=== PATIENT | male | born 1950 | race Caucasian/White ===

== ENCOUNTER 2021-12-31 14:14 | Observation (INO) ==
[2021-12-31 14:19] VITALS: BMI 32.3
--- NOTE | 2021-12-31 14:23 | DR.GENAD ---
HPI Time Seen Time Seen by Provider: 12/31/21 14:55 Complaint/Symptoms Chief Complaint Doctors Comments: 71 y/o male brought in via EMS for R hernia issues. Has had a R inguinal hernia over the past year. Has increased in size over the past week. Pain is sharp, located R inguinal region, radiates to R testicle. Worse with movement, standing, palpation. Nothing makes it better. Denies nausea, vomiting ,fever. Has difficulty with urination, defecation at times. COVID-19 Coronavirus risk:travel/contact w/high risk person: No Has patient experienced Coronavirus symptoms: No Nurses notes reviewed Nurses Notes Review: Yes Source History Provided: Patient Mode of Arrival Mode of Arrival: Stretcher PMH PMH Past Medical History: Arthritis, Coronary Artery Disease, Diabetes, Dyslipidemia, Hypertension and [place] Past Surgical History: Yes Surgical History: Abdominal Surgery, Angioplasty/Stents, Appendectomy, CABG/Valve Surgery and Cholecystectomy Family History Family Medical History: Cancer, [place], Coronary Artery Disease, Heart Failure and Hypertension Social History Do you use any recreational Drugs:: No Travel Risk Coronavirus risk:travel/contact w/high risk person: No Has patient experienced Coronavirus symptoms: No ROS Review of Systems Constitutional: No Symptoms Reported Eyes: No Symptoms Reported ENTM: No Symptoms Reported Respiratoy: No Symptoms Reported Cardiovascular: No Symptoms Reported Gastrointestinal/Abdominal: Abdominal Pain Genitourinary: No Symptoms Reported Neurological: No Symptoms Reported Musculoskeletal: No Symptoms Reported Integumentary: No Symptoms Reported Hematologic/Lymphatic: No Symptoms Reported Psychiatric: No Symptoms Reported All Other Systems: Reviewed and Negative PE Vital Signs Vitals: Temperature 97.1 F Pulse Rate 102 Respiratory Rate 18 Blood Pressure [Right Arm] 128/62 Blood Pressure 121/82 O2 Sat by Pulse Oximetry 98 General Limitations: No Limitations General Appearance: Alert and In No Apparent Distress Head Head Exam: Normal Inspection Eyes Eye exam: PERRL and EOMI ENT ENT Exam: Normal Exam and Mucous Membranes Moist Neck Neck Exam: Normal Inspection and Full ROM Chest Chest Inspection: Normal Inspection Respiratory Respiratory Exam: Normal Lung Sounds Bilat; negative Accessory Muscle Use and Respiratory Distress Respiratory Exam: Bilateral: Clear to Auscultation Cardiovascular Cardiovascular Exam: Regular Rate, Normal Rhythm and Normal Heart Sounds Abdominal Exam Abdominal Exam: Normal Bowel Sounds, Soft and Tenderness (R inguinal region, + large, soft, tender R inguinal hernia. Not full reducible, does not feel incarcerated. ) Extremities Extremities Exam: Normal Inspection Back Back Exam: Normal Inspection Neurologic Neurological Exam: Alert, Oriented X3 and CN II-XII Intact; negative Motor Sensory Deficit Psychiatric Psychiatric Exam: Normal Affect Skin Skin Exam: Warm and Dry MDM Differential Diagnosis Differential Diagnosis: R inguinal hernia - irreducible, incarcerated, strangulated. COURSE Treatment Treatment: 71 y/o male with R inguinal hernia over the past year, worsening size/pain over the past week. + irreducible, does not appear incarcerated/strangulated. W/u performed. CT of the abd/pelvis with moderate R inguinal hernia with bowel in hernia, not obstructed. Discussed with Dr Kinney, surgery, will admit and anticipate hernia repair in the AM. ROR Labs Reviewed Laboratory Results Reviewed?: Yes Result Diagrams: 12/31/21 14:26 12/31/21 14: Laboratory: WBC 7.1 X10^3/uL (3.6-10.0) 12/31/21 14: RBC 4.25 X10^6/uL (4.7-6.0) L 12/31/21 14:26 Hgb 13.2 g/dL (13.5-18.0) L 12/31/21 14: Hct 36.9 % (42.0-54.0) L 12/31/21 14: MCV 86.9 fL (80.0-100.0) 12/31/21 14:26 MCH 31.1 pg (27.0-34.0) 12/31/21 14: MCHC 35.8 g/dL (33.0-35.0) H 12/31/21 14: RDW 13.7 % (11.6-16.5) 12/31/21 14: Plt Count 161 X10^3/uL (150.0-450.0) 12/31/21 14: MPV 8.9 fL (7.4-11.0) 12/31/21 14:26 Neut % (Auto) 71.2 % (42.0-75.0) 12/31/21 14:26 Lymph % (Auto) 18.0 % (21.0-51.0) L 12/31/21 14:26 Bibb % (Auto) 5.9 % (0.0-13.0) 12/31/21 14: Eos % (Auto) 1.5 % (0.9-2.9) 12/31/21 14: Baso % (Auto) 3.4 % (0.2-1.0) H 12/31/21 14: Neut # (Auto) 5.1 x10^3/uL (2.2-4.8) H 12/31/21 14:26 Lymph # (Auto) 1.3 X10^3/uL (1.3-2.9) 12/31/21 14: Bibb # (Auto) 0.4 x10^3/uL (0.3-0.8) 12/31/21 14: Eos # (Auto) 0.1 x10^3/uL (0.0-0.2) 12/31/21 14: Baso # (Auto) 0.2 X10^3/uL (0.0-0.1) H 12/31/21 14: Absolute Nucleated RBC 0.1 /100WBC 12/31/21 14: PT 15.2 SECONDS (11.8-14.3) 12/31/21 14: INR Target Range - 12/31/21 14: INR 1.24 (0.8-1.3) 12/31/21 14: APTT 25.7 SECONDS (22.9-36.5) 12/31/21 14:26 PTT Comment - 12/31/21 14:26 Sodium 138 mmol/L (136-145) 12/31/21 14: Corrected Sodium 140 mmol/L (136-145) 12/31/21 14:26 Potassium 5.4 mmol/L (3.5-5.1) H 12/31/21 14:26 Chloride 101 mmol/L (98-107) 12/31/21 14:26 Carbon Dioxide 27.9 mmol/L (21-32) 12/31/21 14:26 BUN 48 mg/dL (7-18) H 12/31/21 14:26 Creatinine 1.77 mg/dL (0.70-1.30) H 12/31/21 14:26 Est GFR (MDRD) Af Amer 49 (>60) L 12/31/21 14:26 Est GFR (MDRD) Non-Af 41 (>60) L 12/31/21 14:26 Glucose 168 mg/dL (65-99) H 12/31/21 14:26 Calcium 9.5 mg/dL (8.5-10.1) 12/31/21 14:26 Corrected Calcium TNP 12/31/21 14:26 Total Bilirubin 0.40 mg/dL (0.2-1.0) 12/31/21 14:26 AST 16 Units/L (15-37) 12/31/21 14:26 ALT 11 Units/L (12-78) L 12/31/21 14:26 Alkaline Phosphatase 81 Units/L (46-116) 12/31/21 14:26 Total Protein 7.5 g/dL (6.4-8.2) 12/31/21 14:26 Albumin 4.2 g/dL (3.4-5.0) 12/31/21 14:26 Globulin 3.3 g/dL (2.5-4.5) 12/31/21 14:26 Albumin/Globulin Ratio 1.3 Ratio (1.1-2.1) 12/31/21 14:26 XRAY XRAY Interpreted by: Radiologist X-ray Results: + R inguinal hernia, no obstruction. EKG Rate: 92 [place]: Normal Rhythm: NSR Block: None ST: Nonsp Opioid Opioid Risk Tool Age (Gwyn box if 16-45): No History of Preadolescent Sexual Abuse: No Total: 0 Total Score Risk Category: Low Risk Copyright: Tommie PATIÑO predicting aberrant behaviors Diagnosis Discharge Problem: Irreducible right inguinal hernia
[2021-12-31 14:34] LABS: BASOPHILS # (AUTO) 0.2 X10^3/uL (0.0-0.1); BASOPHILS % (AUTO) 3.4 % (0.2-1.0); EOSINOPHILS # (AUTO) 0.1 x10^3/uL (0.0-0.2); EOSINOPHILS % (AUTO) 1.5 % (0.9-2.9); HEMATOCRIT 36.9 % (42.0-54.0); HEMOGLOBIN 13.2 g/dL (13.5-18.0); LYMPHOCYTES # (AUTO) 1.3 X10^3/uL (1.3-2.9); MEAN CORPUSCULAR HEMOGLOBIN 31.1 pg (27.0-34.0); MEAN CORPUSCULAR HGB CONC 35.8 g/dL (33.0-35.0); MEAN CORPUSCULAR VOLUME 86.9 fL (80.0-100.0); MEAN PLATELET VOLUME 8.9 fL (7.4-11.0); MONOCYTES # (AUTO) 0.4 x10^3/uL (0.3-0.8); MONOCYTES % (AUTO) 5.9 % (0.0-13.0); NEUTROPHILS # (AUTO) 5.1 x10^3/uL (2.2-4.8); NEUTROPHILS % (AUTO) 71.2 % (42.0-75.0); RED BLOOD COUNT 4.25 X10^6/uL (4.7-6.0); RED CELL DISTRIBUTION WIDTH 13.7 % (11.6-16.5); WHITE BLOOD COUNT 7.1 X10^3/uL (3.6-10.0)
[2021-12-31 14:47] LABS: ALANINE AMINOTRANSFERASE 11 Units/L (12-78); ALBUMIN 4.2 g/dL (3.4-5.0); ALKALINE PHOSPHATASE 81 Units/L (46-116); ASPARTATE AMINO TRANSFERASE 16 Units/L (15-37); BLOOD UREA NITROGEN 48 mg/dL (7-18); CALCIUM 9.5 mg/dL (8.5-10.1); CARBON DIOXIDE 27.9 mmol/L (21-32); CHLORIDE 101 mmol/L (98-107); COR NA(FOR HYPERGLY) 140 mmol/L (136-145); CREATININE 1.77 mg/dL (0.70-1.30); SODIUM 138 mmol/L (136-145); TOTAL PROTEIN 7.5 g/dL (6.4-8.2); eGFR NON BLACK RACES 41 (>60)
[2021-12-31] MEDS ORDERED: MORPHINE SULFATE INJ 4 MG IVP ONE (14:55)
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
[2021-12-31] MEDS ORDERED: MORPHINE SULFATE INJ 4 MG ONE (15:02)
[2021-12-31] MEDS ORDERED: ZOFRAN INJ 4 MG VIAL IVP ONE (15:56)
[2021-12-31] MEDS ORDERED: ZOFRAN INJ 4 MG VIAL ONE (16:08)
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
[2021-12-31] MEDS: MORPHINE SULFATE INJ 4 MG IVP PRN (20:23)
[2022-01-01] MEDS ORDERED: ZOFRAN INJ 4 MG VIAL IVP ONE (05:05)
[2022-01-01 06:13] LABS: BASOPHILS % (AUTO) 0.9 % (0.2-1.0); EOSINOPHILS # (AUTO) 0.2 x10^3/uL (0.0-0.2); EOSINOPHILS % (AUTO) 4.5 % (0.9-2.9); HEMOGLOBIN 12.4 g/dL (13.5-18.0); LYMPHOCYTES # (AUTO) 1.8 X10^3/uL (1.3-2.9); MEAN CORPUSCULAR HEMOGLOBIN 30.7 pg (27.0-34.0); MEAN CORPUSCULAR HGB CONC 35.3 g/dL (33.0-35.0); MONOCYTES # (AUTO) 0.4 x10^3/uL (0.3-0.8); MONOCYTES % (AUTO) 8.1 % (0.0-13.0); NEUTROPHILS % (AUTO) 53.5 % (42.0-75.0); RED BLOOD COUNT 4.03 X10^6/uL (4.7-6.0); RED CELL DISTRIBUTION WIDTH 13.6 % (11.6-16.5); WHITE BLOOD COUNT 5.5 X10^3/uL (3.6-10.0)
[2022-01-01 06:29] LABS: ALANINE AMINOTRANSFERASE 11 Units/L (12-78); ALBUMIN 3.8 g/dL (3.4-5.0); ALKALINE PHOSPHATASE 81 Units/L (46-116); ASPARTATE AMINO TRANSFERASE 16 Units/L (15-37); BLOOD UREA NITROGEN 39 mg/dL (7-18); CALCIUM 8.8 mg/dL (8.5-10.1); CARBON DIOXIDE 26.3 mmol/L (21-32); CHLORIDE 105 mmol/L (98-107); COR NA(FOR HYPERGLY) 140 mmol/L (136-145); CREATININE 1.29 mg/dL (0.70-1.30); SODIUM 140 mmol/L (136-145); TOTAL PROTEIN 6.9 g/dL (6.4-8.2); eGFR NON BLACK RACES 59 (>60)
[2022-01-01] MEDS ORDERED: MARCAINE SPINAL ONE (10:29)
[2022-01-01] MEDS ORDERED: XYLOCAINE 2 % (PLAIN) ONE ×2 (10:39→11:29)
[2022-01-01] MEDS ORDERED: DIPRIVAN VIAL 20 ML ONE ×3 (10:39→13:27)
[2022-01-01] MEDS ORDERED: PRECEDEX INJ VIAL IVP ONE (10:39)
[2022-01-01] MEDS ORDERED: DUONEB 0.5 MG/3 MG (3 mL) NEB ONE ×2 (10:53→10:59)
[2022-01-01] MEDS ORDERED: NS 1,000 ML IV 1,000 ML ONE (10:53)
[2022-01-01] MEDS ORDERED: ANCEF VIAL 1 GRAM ONE (10:53)
[2022-01-01] MEDS ORDERED: NS 100 ML IV 100 ML ONE (10:54)
[2022-01-01] MEDS ORDERED: REFLEX: PROVENTIL NEB & PulmiCORT NEB~ NEB SCH (11:00)
[2022-01-01] MEDS ORDERED: NEO-SYNEPHRINE INJ ONE (11:00)
[2022-01-01] MEDS ORDERED: POLYMYXIN B SULFATE ONE (11:01)
[2022-01-01] MEDS ORDERED: MARCAINE 0.25% INJ ONE (11:01)
[2022-01-01] MEDS ORDERED: NAROPIN 0.75% EPI ONE (11:39)
[2022-01-01] MEDS ORDERED: FENTANYL VIAL INJ 100 mcg ONE (12:10)
[2022-01-01] MEDS ORDERED: KETAMINE 50 MG/5 ML-NACL SYRNG ONE (12:11)
[2022-01-01] MEDS ORDERED: PULMICORT NEB TX 0.5 MG NEB SCH (13:00)
[2022-01-01] MEDS ORDERED: DILAUDID INJ IVP PRN (14:09)
[2022-01-01] MEDS ORDERED: D5 1/2 NS 1,000 ML 1,000 ML IV SCH (15:00)
[2022-01-01 15:25] LABS: CREATINE KINASE MB 1.7 ng/mL (0-4.0)
[2022-01-01] MEDS ORDERED: NITRO-BID OINT 2% Multi-Dose tube TD ONE (15:39)
[2022-01-01] MEDS ORDERED: PROTONIX INJ 40 MG VIAL IVP SCH (15:41)
[2022-01-01] MEDS ORDERED: MAALOX or MYLANTA PO ONE (15:43)
[2022-01-01] MEDS ORDERED: NITRO-BID OINT 2% UD (E.R. USE ONLY) ONE (15:45)
[2022-01-01] MEDS ORDERED: ASPIRIN 81 MG CHEWTAB ONE (15:45)
[2022-01-01] MEDS ORDERED: PROTONIX INJ 40 MG VIAL ONE (15:45)
[2022-01-01] MEDS ORDERED: MAALOX or MYLANTA ONE (15:47)
[2022-01-01] MEDS ORDERED: ASPIRIN 81 MG CHEWTAB PO SCH (16:00)
[2022-01-01] MEDS: MORPHINE SULFATE INJ 4 MG IVP PRN (16:02)
[2022-01-01 16:49] LABS: CKMB % 3.7 % (<4); CREATINE KINASE MB 1.8 ng/mL (0-4.0)
[2022-01-01] MEDS ORDERED: HEPARIN SODIUM IN D5W 25,000 UNITS/500 ML BAG ONE (16:57)
[2022-01-01] MEDS ORDERED: LOPRESSOR INJ 5 MG AMP ONE (16:57)
[2022-01-01] MEDS ORDERED: LOPRESSOR INJ 5 MG AMP IVP ONE (16:57)
[2022-01-01] MEDS ORDERED: HEPARIN SODIUM IN D5W 25,000 UNITS/500 ML BAG IV PRN (16:58)
[2022-01-01] MEDS ORDERED: HEPARIN SODIUM INJ 5000 UNITS IVP ONE (17:03)
[2022-01-01] MEDS ORDERED: HEPARIN SODIUM INJ 5000 UNITS ONE (17:04)
[2022-01-01 17:24] VITALS: BP 127/87
[2022-01-01] MEDS ORDERED: ANCEF VIAL 1 GRAM IV SCH (22:00)
--- NOTE | 2022-02-03 12:30 | PCM.DCPLAN ---
Discharge Plan - Discharge Plan Hospital Course: Admit date 12/31/21 Discharge date 01/01/22 DOS 01/01/22 Admit Diagnosis Incarcerated right inguinal hernia with loops of small intestine within the hernia sac. Discharge Diagnosis Incarcerated right inguinal hernia, Chest pain, Elevated troponin, NSTEMI Hospital Course Patient is a 71 year old male who was admitted for incarcerated hernia. Patient underwent hernia repair by Dr. Chamorro. Later in the admission patient developed chest pain. EKG revealed changes as well as elevated troponin. Dr. Crowe was consulted. Patient was transferred to [facility] for further eval and treatment and possible heart cath. Greater than 60 mins spent on transfer Disposition: XFER SHT-TRM HOSP Condition: Stable Health Concerns: Post Hospitalization: new medications and changes needed to prevent readmission or further decline. Pt educated and given instructions on all concerns. Care Plan Goals: Problem: Pain/Alteration in Comfort Goal: Improve/ Resolve Pain; Achieve Pain Tolerance Instructions: Take pain medications as prescribed. Contact your primary care provider if your pain is unrelieved or worsens. Follow up with primary care provider as directed. Plan of Treatment: Continue with present treatment and follow up plan. Pt is to keep follow up appointment as instructed and take medications as ordered. Prescriptions: No Action lisinopril 20 mg Tablet 20 mg PO DAILY metformin 1,000 mg Tablet 1,000 mg PO BID tramadol 50 mg Tablet 100 mg PO BID PRN trazodone 150 mg Tablet 150 mg PO QHS - Orders to Discharge Patient Discharge Orders: Discharge by Transfer to Outside Facility (Routine); Ordered 01/01/22 Ordered By: LUCA CROWE - Follow ups/Referrals Follow ups/Referrals: MARIELY QUINONEZ [STAFF PHYSICIAN] - 1 WEEK - Instructions Instructions: Inguinal Hernia, Adult, [id number], Fall Prevention in the Home, Adult, [id number], Hernia, Adult, [id number], Laparoscopic Inguinal Hernia Repair, Adult, Care After, Pain Medicine Instructions, [id number] Print Language: IVORIAN
== END 2022-01-01 17:52 | disposition short-term general hospital (02) ==
LOC: ER 14:14 → MED/SURG 14:14 → ICU 01-01 14:52
PROVIDERS: ADMIT Surgery; ATTEND Surgery
DX: I10 Essential (primary) hypertension; E11.65 Type 2 diabetes mellitus with hyperglycemia; K40.31 Unilateral inguinal hernia, with obstruction, without gangrene, recurrent; I25.10 Atherosclerotic heart disease of native coronary artery without angina pectoris; R26.89 Other abnormalities of gait and mobility; Z79.899 Other long term (current) drug therapy